=== PATIENT | male | born 1995 | race Caucasian/White ===

== ENCOUNTER 2020-09-24 22:25 | Emergency (ER) | payer OTHER ==
[2020-09-24 22:30] VITALS: TEMP 97.8
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
[2020-09-24 23:28] LABS: Basophils # (A) 0.1 k/uL (0-0.2); Basophils % (A) 1 %; Eosinophils # (A) 0.3 k/uL (0-0.7); Eosinophils % (A) 3 %; HCT 45.8 % (39.0-53.0); HGB 15.6 gm/dL (13.0-17.5); Lymphocytes # (A) 3.8 k/uL (1.0-4.8); Lymphocytes % (A) 49 %; MCH 29.8 pg (25.0-35.0); MCV 87.6 fL (80.0-100.0); Mean Platelet Volume 9.4; Monocytes # (A) 0.6 k/uL (0-1.0); Monocytes % (A) 8 %; Neutrophils # (A) 2.9 k/uL (1.3-7.7); Neutrophils % (A) 37 %; Platelet Count 228 k/uL (150-450); RBC 5.23 m/uL (4.30-5.90); WBC 7.8 k/uL (3.8-10.6)
[2020-09-24 23:40] LABS: Partial Thromboplastin Time 24.8 sec (22.0-30.0); Prothrombin Time 10.1 sec (9.0-12.0)
[2020-09-24 23:43] LABS: ALT 43 U/L (4-49); AST 31 U/L (17-59); African American GFR (CKD) >90 (>60 ml/min/1.73 sqM); Albumin 4.6 g/dL (3.5-5.0); Alkaline Phosphatase 71 U/L (38-126); Anion Gap 7 mmol/L; Blood Urea Nitrogen 17 mg/dL (9-20); Calcium 9.3 mg/dL (8.4-10.2); Carbon Dioxide 27 mmol/L (22-30); Chloride 105 mmol/L (98-107); Glucose 106 mg/dL (74-99); Magnesium 1.9 mg/dL (1.6-2.3); Non-African American GFR(CKD) >90 (>60 ml/min/1.73 sqM); Sodium 139 mmol/L (137-145); Total Bilirubin 0.5 mg/dL (0.2-1.3); Total Protein 7.4 g/dL (6.3-8.2)
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
[2020-09-25 00:21] LABS: Appearance,Urine Clear (Clear); Bilirubin,Urine Negative (Negative); Blood,Urine Negative (Negative); Color,Urine Yellow; Glucose,Urine (UA) Negative (Negative); Ketones,Urine Negative (Negative); Leukocyte Esterase,Urine Negative (Negative); Nitrite,Urine Negative (Negative); Protein,Urine Negative (Negative); Specific Gravity,Urine 1.044 (1.001-1.035); Urobilinogen,Urine <2.0 mg/dL (<2.0)
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
[2020-09-25] MEDS ORDERED: ACET/COD 300 MG/30 MG STARTER PACK 6 TAB BTL PO STA (01:54)
[2020-09-25 02:04] VITALS: BP 128/87; PULSE 74; RESP 16
== END 2020-09-25 02:04 | disposition home or self-care (01) ==
LOC: EC 22:25
DX: R07.81 Pleurodynia (principal); R42 Dizziness and giddiness; R68.84 Jaw pain; M25.512 Pain in left shoulder; R07.89 Other chest pain; R10.9 Unspecified abdominal pain; Z88.2 Allergy status to sulfonamides
CPT/HCPCS: 36415; 93005; 80053; 83605; 83735; 84484; 85025; 85610; 85730; 81003; 72125; 70486; 70450; 71260; 74177; 99285; Q9967

== ENCOUNTER 2020-12-26 19:13 | Emergency (ER) | payer OTHER ==
[2020-12-26 19:16] VITALS: RESP 18; TEMP 97.5
[2020-12-26] MEDS ORDERED: SODIUM CHLORIDE 0.9% 500 ML 500 ML IV ONE (19:42)
[2020-12-26] MEDS ORDERED: SODIUM CHLORIDE 0.9% 1,000 ML IV ONE (19:42)
[2020-12-26] MEDS ORDERED: LORazepam 2 MG/ML INJ IV STA (19:42)
--- NOTE | 2020-12-26 19:50 | ED ---
General Adult HPI - General Chief complaint: Arrhythmia/Palpitations Stated complaint: Numbness on left side Time Seen by Provider: 12/26/20 19:19 Source: patient Mode of arrival: ambulatory Limitations: no limitations - History of Present Illness Initial comments: 25 year-old male patient presents to the emergency department for evaluation of increased shaking and left sided body discomfort after taking 2 scoops of a strong pre-workout supplement. Patient states he also had a cup of coffee and 2 energy drinks earlier this morning. Patient states that he took the pre-workout about 40 minutes ago. Started feeling unwell shortly after. He denies any chest pain or shortness of breath. Denies any racing heart or palpitations. Denies any dizziness or syncope. Patient denies history of any heart conditions. Does not use any medications. Denies alcohol or drug use. Patient denies any recent rash, fever, chills, cough, abdominal pain, nausea, vomiting, diarrhea, constipation, back pain, hematuria, dysuria, urinary urgency, urinary frequency, headache, visual changes, or any other complaints. - Related Data Home Medications Medication Instructions Recorded Confirmed Ibuprofen [Motrin] 600 mg PO DAILY PRN 12/26/20 12/26/20 Allergies Allergy/AdvReac Type Severity Reaction Status Date / Time Sulfa (Sulfonamide Allergy Unknown Verified 12/26/20 20:47 Antibiotics) Childhood Review of Systems ROS Statement: Those systems with pertinent positive or pertinent negative responses have been documented in the HPI. ROS Other: All systems not noted in ROS Statement are negative. Past Medical History Past Medical History: No Reported History History of Any Multi-Drug Resistant Organisms: MRSA Date of last positivie culture/infection: 2007 MDRO Source:: L leg Past Surgical History: No Surgical Hx Reported Past Psychological History: No Psychological Hx Reported Smoking Status: Never smoker Past Alcohol Use History: None Reported Past Drug Use History: None Reported General Exam Limitations: no limitations General appearance: alert, in no apparent distress, other (This is a well- developed, well-nourished adult male patient in no acute distress. Vital signs upon presentation are temperature 97.5F, pulse 99, respirations 18, blood pressure 161/87, pulse ox 98% on room air.) Eye exam: Present: normal appearance, PERRL, EOMI. Absent: scleral icterus, conjunctival injection, periorbital swelling ENT exam: Present: normal exam, normal oropharynx, mucous membranes moist Respiratory exam: Present: normal lung sounds bilaterally. Absent: respiratory distress, wheezes, rales, rhonchi, stridor Cardiovascular Exam: Present: regular rate, normal rhythm, normal heart sounds. Absent: systolic murmur, diastolic murmur, rubs, gallop, clicks GI/Abdominal exam: Present: soft, normal bowel sounds. Absent: distended, tenderness, guarding, rebound, rigid Neurological exam: Present: alert, oriented X3, CN II-XII intact Psychiatric exam: Present: normal affect, normal mood Skin exam: Present: warm, dry, intact, normal color. Absent: rash Course Vital Signs 12/26/20 12/26/20 12/26/20 19:14 19:32 20:04 Temperature 97.5 F L Pulse Rate 99 85 88 Respiratory 18 18 18 Rate Blood Pressure 161/87 115/91 160/99 O2 Sat by Pulse 98 100 100 Oximetry 12/26/20 21:28 Temperature 97.5 F L Pulse Rate 82 Respiratory 18 Rate Blood Pressure 136/77 O2 Sat by Pulse 100 Oximetry EKG Findings - EKG Comments: EKG Findings:: EKG obtained in 192 shows normal sinus rhythm with sinus arrhythmia. Ventricular rate is 88, DE interval 148, QR taoist 98, QT 372, QTc 450. No evidence of ST elevation or depression. Medical Decision Making - Medical Decision Making 25-year-old male patient presents to the emergency department today for evaluation of shakiness and discomfort and paresthesia to the left side of his body after taking 2 scoops of a pre-workout supplement that is not FDA approved. Also reported having 2 energy drinks in a couple coffee earlier in the day. Physical examination did reveal generalized tremor. Lungs were clear to auscultation. Heart sounds were normal. Vital signs reviewed and were unremarkable. EKG showed sinus rhythm. He was given IV fluids and a milligram of Ativan. Upon reevaluation is resting comfortably in bed states he does feel better. He'll be discharged follow up with his primary care physician for recheck in 1-2 days. He is advised against using this workout supplement in the future. Return parameters were discussed in detail. He verbalizes understanding and agrees with this plan per Disposition Clinical Impression: Jittery, Paresthesia Disposition: HOME SELF-CARE Condition: Good Additional Instructions: Increase fluids. Rest. Avoid this pre-workout and multiple caffeinated beverages in the future. Follow up with your primary care physician for recheck in 1-2 days. Return to the emergency department for any new, worsening, or concerning symptoms. Is patient prescribed a controlled substance at d/c from ED?: No Referrals: None,Stated [Primary Care Provider] - 1-2 days Time of Disposition: 20:55
[2020-12-26 21:30] VITALS: BP 136/77; PULSE 82
== END 2020-12-26 21:29 | disposition home or self-care (01) ==
LOC: EC 19:13
DX: R25.1 Tremor, unspecified (principal); R20.2 Paresthesia of skin; T43.615A Adverse effect of caffeine, initial encounter; Z79.1 Long term (current) use of non-steroidal anti-inflammatories (NSAID); Z88.2 Allergy status to sulfonamides; Z86.14 Personal history of Methicillin resistant Staphylococcus aureus infection
CPT/HCPCS: 93005; J2060; 96361; 96374; 99285

== ENCOUNTER 2021-01-03 18:40 | Emergency (ER) | payer OTHER ==
[2021-01-03 18:44] VITALS: BP 135/87; PULSE 82; RESP 18; TEMP 98.5
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
[2021-01-03 19:47] LABS: Basophils % (A) 0 %; Eosinophils # (A) 0.1 k/uL (0-0.7); Eosinophils % (A) 1 %; HCT 44.3 % (39.0-53.0); Lymphocytes # (A) 3.8 k/uL (1.0-4.8); Lymphocytes % (A) 46 %; MCH 29.4 pg (25.0-35.0); MCHC 33.9 g/dL (31.0-37.0); MCV 86.7 fL (80.0-100.0); Monocytes # (A) 0.7 k/uL (0-1.0); Monocytes % (A) 9 %; Neutrophils # (A) 3.3 k/uL (1.3-7.7); Neutrophils % (A) 41 %; Platelet Count 237 k/uL (150-450); RBC 5.11 m/uL (4.30-5.90); RDW 13.3 % (11.5-15.5); WBC 8.1 k/uL (3.8-10.6)
[2021-01-03 20:03] LABS: ALT 29 U/L (4-49); AST 26 U/L (17-59); African American GFR (CKD) >90 (>60 ml/min/1.73 sqM); Albumin 4.8 g/dL (3.5-5.0); Alkaline Phosphatase 61 U/L (38-126); Anion Gap 11 mmol/L; Blood Urea Nitrogen 15 mg/dL (9-20); Calcium 9.6 mg/dL (8.4-10.2); Carbon Dioxide 27 mmol/L (22-30); Chloride 100 mmol/L (98-107); Glucose 93 mg/dL (74-99); Magnesium 1.8 mg/dL (1.6-2.3); Non-African American GFR(CKD) 83 (>60 ml/min/1.73 sqM); Sodium 138 mmol/L (137-145); Total Bilirubin 1.3 mg/dL (0.2-1.3); Total Protein 7.6 g/dL (6.3-8.2)
[2021-01-03 20:08] LABS: C Reactive Protein <5.0 mg/L (<10.0)
--- NOTE | 2021-01-03 20:29 | CT ---
EXAMINATION TYPE: CT brain cspine wo con DATE OF EXAM: 01/03/2021 COMPARISON: CT brain and cervical spine September 24, 2020 HISTORY: JEFFREY, LT arm numbness and paresthesia. CT DLP: 1682.9 mGycm. Automated Exposure Control for Dose Reduction was Utilized. TECHNIQUE: CT scan of the head and cervical spine are performed without contrast. FINDINGS: There is no acute intracranial hemorrhage, mass effect, or midline shift identified. The ventricles and sulci are within normal limits in size. Waldrop-white matter differentiation is maintai brooks. Persistent mucous retention cyst or polyp in the posterior left maxillary sinus partially imaged . Cervical spine is visualized in its entirety from C1 through upper thoracic levels and demonstrates s table and satisfactory alignment without evidence of acute fracture or dislocation. Prevertebral sof t tissue appears within normal limits. The C1-C2 articulation is within normal limits on the coronal images. Vertebral body heights and disc space heights are maintained. Spinal canal is preserved. Ax ial images are unremarkable. Thyroid gland is within normal limits. Lung apices show no pneumothorax. IMPRESSION: 1. There is no acute fracture or dislocation evident in the cervical spine. 2. No acute intracranial hemorrhage or midline shift is seen. No significant change from recent CT.
== END 2021-01-03 21:17 | disposition home or self-care (01) ==
LOC: EC 18:40
DX: M54.12 Radiculopathy, cervical region (principal); R60.0 Localized edema; Z88.0 Allergy status to penicillin; Z86.14 Personal history of Methicillin resistant Staphylococcus aureus infection
CPT/HCPCS: 36415; 70450; 72125; 80053; 83735; 85025; 86140; 93005; 99284

== ENCOUNTER 2021-04-05 21:02 | Emergency (ER) | payer OTHER ==
[2021-04-05] MEDS ORDERED: SODIUM CHLORIDE 0.9% 1,000 ML IV STA (21:16)
--- NOTE | 2021-04-05 21:21 | ED ---
General Adult HPI - General Chief complaint: Chest Pain Stated complaint: chest pain Time Seen by Provider: 04/05/21 21:07 Source: patient, RN notes reviewed Mode of arrival: wheelchair Limitations: no limitations - History of Present Illness Initial comments: Patient is a 26-year-old male that presents to emergency department complaining of chest pain that's on and off for the past 2-3 weeks. He notes that the chest pain comes on randomly is not incited by any activity or stress. He notes that he thinks is not stress related as he is less stressed lately and is still having chest pains. He did note that he had diaphoresis wants and that someti mes the pain radiates down to the left arm. Patient notes that he does have a history of anxiety but does not think this contributes to his chest pain that comes and goes. He denied taking anything to help alleviate the pain or episodes. She denied any pain while sitting up in bed during the exam interview. He did note that sometimes his vision gets a little fuzzy but returns in a few seconds. He denied any shortness of breath headache constipation fever fatigue chills lightheadedness dizziness. - Related Data Home Medications Medication Instructions Recorded Confirmed Finasteride 1 mg PO DAILY 04/05/21 04/05/21 busPIRone HCl [Buspar] 5 mg PO BID 04/05/21 04/05/21 Allergies Allergy/AdvReac Type Severity Reaction Status Date / Time Sulfa (Sulfonamide Allergy Unknown Verified 04/05/21 22:19 Antibiotics) Childhood Review of Systems ROS Statement: Those systems with pertinent positive or pertinent negative responses have been documented in the HPI. ROS Other: All systems not noted in ROS Statement are negative. Past Medical History Past Medical History: No Reported History History of Any Multi-Drug Resistant Organisms: MRSA Date of last positivie culture/infection: 2007 MDRO Source:: L leg Past Surgical History: No Surgical Hx Reported Past Psychological History: Anxiety Smoking Status: Never smoker Past Alcohol Use History: Occasional Past Drug Use History: None Reported General Exam Limitations: no limitations General appearance: alert, in no apparent distress Head exam: Present: atraumatic, normocephalic, normal inspection Eye exam: Present: normal appearance, PERRL, EOMI. Absent: scleral icterus, conjunctival injection, periorbital swelling Neck exam: Present: normal inspection Respiratory exam: Present: normal lung sounds bilaterally. Absent: respiratory distress, wheezes, rales, rhonchi, stridor Cardiovascular Exam: Present: regular rate, normal rhythm, normal heart sounds. Absent: systolic murmur, diastolic murmur, rubs, gallop, clicks GI/Abdominal exam: Present: soft, normal bowel sounds. Absent: distended, tenderness, guarding, rebound, rigid Extremities exam: Present: normal inspection, full ROM, normal capillary refill. Absent: tenderness, pedal edema, joint swelling, calf tenderness Neurological exam: Present: alert, oriented X3, CN II-XII intact Psychiatric exam: Present: normal affect, normal mood Skin exam: Present: warm, dry, intact, normal color. Absent: rash Course Vital Signs 04/05/21 04/05/21 04/05/21 21:04 22:14 22:44 Temperature 97.9 F Pulse Rate 84 63 86 Respiratory 18 15 16 Rate Blood Pressure 138/88 156/78 116/72 O2 Sat by Pulse 100 99 97 Oximetry - Reevaluation(s) Reevaluation #1: 04/05/21 22:47 Upon reevaluation patient stated that he was having some mild discomfort approximate 7 out of 10 and would like some pain medication. EKG Findings - EKG Comments: EKG Findings:: Ventricular rate 69 bpm, WV interval 150 ms, QRS duration 94 ms, QTC 428 ms, PRT axes 37/85/25. Normal sinus rhythm, normal ECG. Medical Decision Making - Medical Decision Making 26-year-old male complaining of chest pain and on randomly for the past 2-3 weeks. Labs, EKG, school bus monitor, 1 L saline, chest x-ray ordered. Labs unremarkable. Chest x-ray negative. Patient's symptoms most consistent with atypical chest pain. Case discussed with Dr. Richards, patient can discharge home with follow-up primary care - Lab Data Result diagrams: 04/05/21 21:04/05/21 21: Lab Results 04/05/21 04/05/21 04/05/21 Range/Units 21:27 21: 21: WBC 9.7 (3.8-10.6) k/uL RBC 5.27 (4.30-5.90) m/uL Hgb 15.2 (13.0-17.5) gm/dL Hct 45.6 (39.0-53.0) % MCV 86.6 (80.0-100.0) fL MCH 28.8 (25.0-35.0) pg MCHC 33.3 (31.0-37.0) g/dL RDW 12.7 (11.5-15.5) % Plt Count 235 (150-450) k/uL MPV 9.1 Neutrophils % 45 % Lymphocytes % 41 % Monocytes % 9 % Eosinophils % 2 % Basophils % 1 % Neutrophils # 4.4 (1.3-7.7) k/uL Lymphocytes # 3.9 (1.0-4.8) k/uL Monocytes # 0.9 (0-1.0) k/uL Eosinophils # 0.2 (0-0.7) k/uL Basophils # 0.1 (0-0.2) k/uL PT 10.3 (9.0-12.0) sec INR 1.0 (<1.2) APTT 25.4 (22.0-30.0) sec Sodium 140 (137-145) mmol/L Potassium 4.1 (3.5-5.1) mmol/L Chloride 106 (98-107) mmol/L Carbon Dioxide 26 (22-30) mmol/L Anion Gap 8 mmol/L BUN 18 (9-20) mg/dL Creatinine 1.05 (0.66-1.25) mg/dL Est GFR (CKD-EPI)AfAm >90 (>60 ml/min/1.73 sqM) Est GFR (CKD-EPI)NonAf >90 (>60 ml/min/1.73 sqM) Glucose 85 (74-99) mg/dL Calcium 9.6 (8.4-10.2) mg/dL Magnesium 1.9 (1.6-2.3) mg/dL Total Bilirubin 0.6 (0.2-1.3) mg/dL AST 33 (17-59) U/L ALT 36 (4-49) U/L Alkaline Phosphatase 95 (38-126) U/L Troponin I (0.000-0.034) ng/mL Total Protein 7.3 (6.3-8.2) g/dL Albumin 4.5 (3.5-5.0) g/dL Amylase 128 H (30-110) U/L Lipase 101 (23-300) U/L 04/05/21 Range/Units 21:27 WBC (3.8-10.6) k/uL RBC (4.30-5.90) m/uL Hgb (13.0-17.5) gm/dL Hct (39.0-53.0) % MCV (80.0-100.0) fL MCH (25.0-35.0) pg MCHC (31.0-37.0) g/dL RDW (11.5-15.5) % Plt Count (150-450) k/uL MPV Neutrophils % % Lymphocytes % % Monocytes % % Eosinophils % % Basophils % % Neutrophils # (1.3-7.7) k/uL Lymphocytes # (1.0-4.8) k/uL Monocytes # (0-1.0) k/uL Eosinophils # (0-0.7) k/uL Basophils # (0-0.2) k/uL PT (9.0-12.0) sec INR (<1.2) APTT (22.0-30.0) sec Sodium (137-145) mmol/L Potassium (3.5-5.1) mmol/L Chloride (98-107) mmol/L Carbon Dioxide (22-30) mmol/L Anion Gap mmol/L BUN (9-20) mg/dL Creatinine (0.66-1.25) mg/dL Est GFR (CKD-EPI)AfAm (>60 ml/min/1.73 sqM) Est GFR (CKD-EPI)NonAf (>60 ml/min/1.73 sqM) Glucose (74-99) mg/dL Calcium (8.4-10.2) mg/dL Magnesium (1.6-2.3) mg/dL Total Bilirubin (0.2-1.3) mg/dL AST (17-59) U/L ALT (4-49) U/L Alkaline Phosphatase (38-126) U/L Troponin I <0.012 (0.000-0.034) ng/mL Total Protein (6.3-8.2) g/dL Albumin (3.5-5.0) g/dL Amylase (30-110) U/L Lipase (23-300) U/L - EKG Data -: EKG Interpreted by Ok EKG shows normal: sinus rhythm Rate: normal EKG Comments: Ventricular rate 69 bpm, WV interval 150 ms, QRS duration 94 ms, QTC 428 ms, PRT axes 37/85/25. Normal sinus rhythm, normal ECG. - Radiology Data Radiology results: report reviewed, image reviewed Chest x-ray: Heart and mediastinum are normal. Lungs are clear. Diaphragm is normal. Bony thorax is intact. Normal chest. Disposition Clinical Impression: Atypical chest pain Disposition: HOME SELF-CARE Condition: Stable Instructions (If sedation given, give patient instructions): Chest Pain (ED) Additional Instructions: Please return to the Emergency Department if symptoms worsen or any other concerns. Follow-up with primary care in the next several days. Consult cardiology. Take Tylenol Motrin as needed for pain control. Increase oral fluid intake. Is patient prescribed a controlled substance at d/c from ED?: No Referrals: Ludy Barrera MD [Primary Care Provider] - 1-2 days Tucker Barclay MD [STAFF PHYSICIAN] - 1-2 days Time of Disposition: 23:00
[2021-04-05 21:57] LABS: Basophils # (A) 0.1 k/uL (0-0.2); Basophils % (A) 1 %; Eosinophils # (A) 0.2 k/uL (0-0.7); Eosinophils % (A) 2 %; HCT 45.6 % (39.0-53.0); HGB 15.2 gm/dL (13.0-17.5); Lymphocytes # (A) 3.9 k/uL (1.0-4.8); Lymphocytes % (A) 41 %; MCH 28.8 pg (25.0-35.0); MCHC 33.3 g/dL (31.0-37.0); MCV 86.6 fL (80.0-100.0); Mean Platelet Volume 9.1; Monocytes # (A) 0.9 k/uL (0-1.0); Monocytes % (A) 9 %; Neutrophils # (A) 4.4 k/uL (1.3-7.7); Neutrophils % (A) 45 %; Platelet Count 235 k/uL (150-450); RBC 5.27 m/uL (4.30-5.90); RDW 12.7 % (11.5-15.5); WBC 9.7 k/uL (3.8-10.6)
--- NOTE | 2021-04-05 22:06 | XR ---
EXAMINATION TYPE: XR chest 2V DATE OF EXAM: 04/05/2021 COMPARISON: NONE HISTORY: Short of breath TECHNIQUE: 2 views FINDINGS: Heart and mediastinum are normal. Lungs are clear. Diaphragm is normal. Bony thorax is inta ct. There are chest leads. IMPRESSION: Normal chest.
[2021-04-05 22:11] LABS: Partial Thromboplastin Time 25.4 sec (22.0-30.0); Prothrombin Time 10.3 sec (9.0-12.0)
[2021-04-05 22:28] LABS: ALT 36 U/L (4-49); AST 33 U/L (17-59); African American GFR (CKD) >90 (>60 ml/min/1.73 sqM); Albumin 4.5 g/dL (3.5-5.0); Alkaline Phosphatase 95 U/L (38-126); Amylase 128 U/L (30-110); Anion Gap 8 mmol/L; Blood Urea Nitrogen 18 mg/dL (9-20); Calcium 9.6 mg/dL (8.4-10.2); Carbon Dioxide 26 mmol/L (22-30); Chloride 106 mmol/L (98-107); Glucose 85 mg/dL (74-99); Lipase 101 U/L (23-300); Magnesium 1.9 mg/dL (1.6-2.3); Non-African American GFR(CKD) >90 (>60 ml/min/1.73 sqM); Potassium 4.1 mmol/L (3.5-5.1); Sodium 140 mmol/L (137-145); Total Bilirubin 0.6 mg/dL (0.2-1.3); Total Protein 7.3 g/dL (6.3-8.2)
[2021-04-05] MEDS ORDERED: MORPHINE SULFATE 4 MG/ML SYRINGE IVP STA (22:52)
[2021-04-05 23:37] VITALS: BP 124/78; PULSE 68; RESP 14; TEMP 97.8
== END 2021-04-05 23:24 | disposition home or self-care (01) ==
LOC: EC 21:02
DX: R07.89 Other chest pain (principal)
CPT/HCPCS: 36415; 71046; 80053; 82150; 83690; 83735; 84484; 85025; 85610; 85730; 93005; 99285

== ENCOUNTER → 2021-05-08 | Outpatient (CLI) | payer OTHER ==
--- NOTE | 2021-05-08 12:22 | MR ---
MR brain without contrast HISTORY: Syncope, R 55 Multiplanar multisequence imaging through the brain, correlation CT brain 01/03/2021 There is no restricted diffusion. There are normal vascular flow voids. Cerebellopontine angles, haley us callosum, pituitary, cervical medullary junction are normal. No significant white matter signal ab normality. Brain signal is maintained. There is no hemorrhage or hydrocephalus. Orbits show symmetric signal. Probable mucus retention cyst present in the antrum of the left maxillary sinus. IMPRESSION: Normal brain MRI. Mucous retention cyst suspected within the left maxillary sinus.
== END | disposition home or self-care (01) ==
LOC: RADMRIMAIN 07:15
PROVIDERS: ATTEND Family Medicine
DX: R55 Syncope and collapse (principal); J34.89 Other specified disorders of nose and nasal sinuses
CPT/HCPCS: 70551